=== PATIENT | male | born 1970 | race Caucasian/White ===

== ENCOUNTER 2023-09-13 15:43 | Emergency (ER) | payer OTHER ==
[2023-09-13] MEDS ORDERED: HYDROmorphone 1 MG/ML Syringe IVPUSH ONE (15:53)
[2023-09-13] MEDS ORDERED: Sodium Chloride 0.9% 10 ML Syringe FLUSH PRN (15:53)
[2023-09-13] MEDS ORDERED: Sodium Chloride 0.9% 2.5 ML Syringe FLUSH PRN (15:53)
[2023-09-13] MEDS ORDERED: Sodium Chloride 0.9% 1,000 ML IV ONE (15:53)
[2023-09-13] MEDS ORDERED: Diphtheria,Pertussis(Acell),Tetanus Vaccine 0.5 ML Syringe IM ONE (15:58)
[2023-09-13 16:05] LABS: HEMOGLOBIN 16.4 g/dL (14.0-18.0); MEAN CORPUSCULAR HGB CONC 34.9 g/dL (32.0-36.0); MEAN PLATELET VOLUME 10.7 fL (9.4-12.4); PLATELET COUNT,PLT 309 K/uL (150-400); RED BLOOD CELL COUNT 5.66 M/uL (4.52-5.90); WHITE BLOOD CELL COUNT,WBC 19.39 K/uL (3.9-11.3)
[2023-09-13] MEDS ORDERED: Iopamidol 755 MG/ML 500 ML Multipack Bottle IVPUSH STA (16:06)
[2023-09-13 16:16] LABS: INR 1.03 (0.86-1.11)
[2023-09-13 16:42] LABS: ALANINE AMINOTRANSFERASE,ALT 123 IU/L (14-63); ALKALINE PHOSPHATASE 102 U/L (46-116); ASPARTATE AMNIOTRANSFERASE,AST 69 IU/L (15-37); BILIRUBIN TOTAL 0.5 mg/dL (0.2-1.0); BLOOD UREA NITROGEN,BUN 21 mg/dL (7.0-18.0); CARBON DIOXIDE,CO2 24.8 mmol/L (21.0-32.0); CHLORIDE,CL 98 mmol/L (98-107); CREATININE 1.4 mg/dL (0.8-1.3); ETHANOL BLOOD MEDICAL <3 mg/dL; GLUCOSE RANDOM 328 mg/dL (74-106); POTASSIUM,K 3.9 mmol/L (3.5-5.1); PROTEIN TOTAL,TP 8.1 g/dL (6.4-8.2); SODIUM,NA 135 mmol/L (136-148)
[2023-09-13 16:43] LABS: ESTIMATED GFR 61 mL/min (>60)
[2023-09-13 17:17] LABS: EOSINOPHILS ABSOLUTE MAN 0.39 K/uL (0.00-0.45); EOSINOPHILS PERCENT MAN 2 % (0-6); LYMPHOCYTES ABSOLUTE MAN 5.24 K/uL (1.00-4.80); LYMPHOCYTES PERCENT MAN 27 % (24-44)
[2023-09-13 17:18] LABS: MONOCYTES ABSOLUTE MAN 0.97 K/uL (0.00-0.80); MONOCYTES PERCENT MAN 5 % (0-8); SEG NEUTROPHILS PERCENT MAN 66 % (41-71)
[2023-09-13] MEDS ORDERED: HYDROmorphone 1 MG/ML Syringe IVPUSH STA (17:52)
== END 2023-09-13 18:44 | disposition home or self-care (01) ==
LOC: MW.ED 15:43
DX: S20.211A Contusion of right front wall of thorax, initial encounter (principal); V86.95XA Unspecified occupant of 3- or 4- wheeled all-terrain vehicle (ATV) injured in nontraffic accident, initial encounter; Y92.410 Unspecified street and highway as the place of occurrence of the external cause
CPT/HCPCS: 36415; 71045; 71260; 72128; 72131; 74177; 80053; 80307; 85025; 85610; 86850; 86900; 86901; 90471; 90715; 96361; 96374; 96376; 99284; J1170; J3490; J7030; Q9967

== ENCOUNTER 2025-01-28 08:42 | Emergency (ER) | payer BC ==
[2025-01-28] MEDS: EPINEPHrine 1:10,000 1 MG/10 ML Syringe IVPUSH ONE ×2 (08:43→08:46)
[2025-01-28] MEDS: Sodium Bicarbonate 8.4% 50 MEQ/50 ML Syringe IVPUSH ONE ×2 (08:44→08:47)
[2025-01-28] MEDS: 50% Dextrose in Water 50 ML Syringe IVPUSH ONE (08:48)
== END 2025-01-28 11:30 | disposition expired ==
LOC: MW.ED 08:42
DX: I46.9 Cardiac arrest, cause unspecified (principal)
CPT/HCPCS: 31500; 92950; 96374; 96375; 99285; 99291; J0171; J3490